=== PATIENT | male | born 1970 | race African-American/Black ===

== ENCOUNTER 2017-02-11 10:31 | Observation (INO) ==
[2017-02-11] MEDS ORDERED: ASPIRIN 325 MG TABLET PO STA (11:03)
[2017-02-11] MEDS ORDERED: MORPHINE 2 MG/1 ML SYRINGE IV STA (11:03)
[2017-02-11] MEDS ORDERED: ALUM/MAG/SIMETH/LIDO VISC 1:1 30 ML BOTTLE PO STA (11:03)
[2017-02-11] MEDS ORDERED: NITROGLYCERIN 2% OINT 1 INCH/GM PACK TOP STA (11:03)
[2017-02-11] MEDS ORDERED: METOPROLOL TARTRATE 5 MG/5 ML VIAL IV STA (11:03)
[2017-02-11] MEDS ORDERED: ONDANSETRON 4 MG/2 ML VIAL IV STA (11:03)
[2017-02-11] MEDS ORDERED: FUROSEMIDE 40 MG/4 ML VIAL IV STA (11:04)
[2017-02-11 11:10] LABS: Basophils # 0.1 10*3/uL (0.0-0.2); Basophils % 1.2 % (0.0-0.8); Eosinophils # 0.2 10*3/uL (0.0-0.87); Eosinophils % 2.8 % (0.00-10.9); Hematocrit 47.4 VOL% (42.0-52.0); Hemoglobin 16.3 GM/DL (14.0-18.0); Immature Granulocytes % 0.2 %; Immature Granulocytes Absolute 0.01 #; Lymphocytes # 2.2 10*3/uL (1.4-4.0); Lymphocytes % 35.8 % (21.2-54.2); Mean Corpuscular HGB Conc 34.4 GM/DL (32-36); Mean Corpuscular Hemoglobin 30 PG (27-34); Mean Corpuscular Volume 86.7 FL (87-102); Monocytes # 0.6 10*3/uL (0.11-0.8); Monocytes % 9.3 % (1.7-12.7); Neutrophils % 50.7 % (38.7-73.9); Platelet Count 202 T/CUMM (130-400); Red Blood Count 5.47 MC/CUMM (3.8-5.5); Red Cell Distribution Width 11.9 % (9.3-17.3)
[2017-02-11] MEDS ORDERED: ONDANSETRON 4 MG/2 ML VIAL ONE (11:19)
[2017-02-11] MEDS ORDERED: MORPHINE 2 MG/1 ML SYRINGE ONE (11:19)
[2017-02-11] MEDS ORDERED: NITROGLYCERIN 2% OINT 1 INCH/GM PACK TOP ONE (11:19)
[2017-02-11] MEDS ORDERED: FUROSEMIDE 40 MG/4 ML VIAL ONE (11:19)
[2017-02-11] MEDS ORDERED: ALUM/MAG/SIMETH/LIDO VISC 1:1 30 ML BOTTLE PO ONE (11:20)
[2017-02-11] MEDS ORDERED: ASPIRIN 325 MG TABLET ONE (11:20)
[2017-02-11] MEDS ORDERED: METOPROLOL TARTRATE 5 MG/5 ML VIAL IV ONE (11:20)
[2017-02-11 11:33] LABS: PT Patient Result > 200.0 SECS
[2017-02-11 11:34] LABS: INR > 20.0
[2017-02-11 11:53] LABS: Albumin 2.9 G/DL (3.4-5.0); Bilirubin,Total 0.7 MG/DL (0.2-1.0); Calcium 8.9 MG/DL (8.5-10.1); Magnesium 2.1 MG/DL (1.8-2.4); Osmolality,Calculated 289.3 MOS/KG (273-304); Total Protein 6.7 G/DL (6.4-8.3)
[2017-02-11 12:11] LABS: PT Patient Result 10.2 SECS
[2017-02-11 12:36] LABS: Ammonia 16 UMOL/L (11-32)
[2017-02-11 12:41] LABS: Lactic Acid 1.6 MMOL/L (0.4-2.0)
[2017-02-11] MEDS ORDERED: ENOXAPARIN 100 MG/ML SYRINGE SUBCUT STA (12:45)
[2017-02-11] MEDS ORDERED: DEXTROSE 50% 25 GM/50 ML VIAL IV PRN (13:08)
[2017-02-11] MEDS ORDERED: GLUCAGON 1 MG VIAL IM PRN (13:08)
[2017-02-11] MEDS ORDERED: ENOXAPARIN 120 MG/0.8 ML SYRINGE SUBCUT ONE (13:12)
[2017-02-11 13:25] LABS: Apearance,Urine CLEAR (Clear); Bilirubin,Urine Negative (Negative); Blood, Urine Small mg/dL (Negative); Glucose,Urine (UA) 150 mg/dL (Negative); Hyaline Casts,Urine 1 /LPF (0-3); Ketones,Urine Negative (Negative); Mucus,Urine Occasional /LPF (Occasional); Nitrite,Urine Negative (Negative); Protein,Urine >=500 MG/DL; RBC,Urine 2 /HPF (0-4); Urine Color Yellow (Yellow); Urine Specific Gravity 1.008 (1.001-1.035); Urine Urobilinogen < 2.0 EU/DL (0.2-1.0); WBC,Urine <1 /HPF (0-6)
[2017-02-11 13:33] LABS: Barbiturates Screen,Urine Negative (Negative); Benzodiazepines Screen,Urine Negative (Negative); Cannabinoid Screen,Urine Negative (Negative); Opiate Screen,Urine Positive (Negative); Phencyclidine Screen,Urine Negative (Negative)
[2017-02-11] MEDS: CARVEDILOL 12.5 MG TABLET PO SCH ×2 (17:28)
[2017-02-11] MEDS: INSULIN LISPRO 100 UNIT/ML SUBCUT SCH ×2 (17:29→21:23)
[2017-02-11] MEDS ORDERED: hydrALAZINE 20 MG/1 ML VIAL IV PRN (21:07)
[2017-02-11] MEDS ORDERED: ACETAMINOPHEN 325 MG TABLET PO PRN (21:07)
[2017-02-11] MEDS: FUROSEMIDE 40 MG/4 ML VIAL IV SCH (21:23)
[2017-02-12] MEDS: ASPIRIN EC 81 MG TABLET PO SCH (09:30)
[2017-02-12] MEDS: CARVEDILOL 12.5 MG TABLET PO SCH ×2 (09:30→17:16)
[2017-02-12] MEDS: FUROSEMIDE 40 MG/4 ML VIAL IV SCH ×2 (09:30→17:16)
[2017-02-12] MEDS: LOSARTAN 50 MG TABLET PO SCH ×2 (09:30→22:11)
[2017-02-12] MEDS: INSULIN LISPRO 100 UNIT/ML SUBCUT SCH ×4 (09:40→22:11)
[2017-02-12] MEDS ORDERED: ENOXAPARIN 40 MG/0.4 ML SYRINGE SUBCUT SCH (21:00)
[2017-02-13 05:18] LABS: Calcium 7.9 MG/DL (8.5-10.1); Osmolality,Calculated 283.4 MOS/KG (273-304); Potassium 3.6 MMOL/L (3.5-5.1)
[2017-02-13 07:58] VITALS: BP 146/95
[2017-02-13] MEDS ORDERED: FUROSEMIDE 40 MG/4 ML VIAL IV SCH (09:00)
[2017-02-13] MEDS: LOSARTAN 50 MG TABLET PO SCH (09:21)
[2017-02-13] MEDS: ASPIRIN EC 81 MG TABLET PO SCH (09:22)
[2017-02-13] MEDS: CARVEDILOL 12.5 MG TABLET PO SCH (09:22)
[2017-02-13] MEDS: INSULIN LISPRO 100 UNIT/ML SUBCUT SCH (09:24)
[2017-02-13] MEDS ORDERED: INSULIN ASPART PROTAMINE/ASPART 70/30 100 UNIT/ML SUBCUT SCH (12:00)
== END 2017-02-13 10:17 | disposition home or self-care (01) ==
LOC: N.EDINP 10:31 → N.ED 10:31 → N.EDINP 15:07 → N.TELES 15:16
PROVIDERS: ADMIT Internal Medicine; ATTEND Internal Medicine

== ENCOUNTER 2020-04-17 14:13 | Inpatient (IN) ==
[2020-04-17 16:28] LABS: Basophils # 0.1 10*3/uL (0.0-0.2); Basophils % 1.2 % (0.0-0.8); Eosinophils # 0.1 10*3/uL (0.0-0.87); Eosinophils % 1.9 % (0.00-10.9); Hemoglobin 9.6 GM/DL (14.0-18.0); Immature Granulocytes % 0.4 %; Immature Granulocytes Absolute 0.02 #; Lymphocytes # 0.8 10*3/uL (1.4-4.0); Lymphocytes % 14.8 % (21.2-54.2); Mean Corpuscular HGB Conc 33.1 GM/DL (32-36); Mean Corpuscular Volume 87.6 FL (87-102); Mean Platelet Volume 10.2 FL (9.6-12.0); Monocytes % 14.4 % (1.7-12.7); Neutrophils % 67.3 % (38.7-73.9); Platelet Count 240 T/CUMM (130-400); Red Blood Count 3.31 MC/CUMM (3.8-5.5); Red Cell Distribution Width 15.7 % (9.3-17.3); White Blood Count 5.7 T/CUMM (4-12)
[2020-04-17 16:41] LABS: Albumin 2.9 G/DL (3.4-5.0); Bilirubin,Total 0.7 MG/DL (0.2-1.0); Calcium 8.8 MG/DL (8.5-10.1); Osmolality,Calculated 301.7 MOS/KG (273-304); Potassium 4.4 MMOL/L (3.5-5.1); Total Protein 7.6 G/DL (6.4-8.3)
[2020-04-17] MEDS ORDERED: SODIUM CHLORIDE 0.9% 500 ML IV STA (16:49)
[2020-04-17] MEDS ORDERED: ONDANSETRON 4 MG/2 ML VIAL IV PRN (17:41)
[2020-04-17] MEDS ORDERED: ACETAMINOPHEN 325 MG TABLET PO PRN (17:41)
[2020-04-17] MEDS ORDERED: GLUCAGON 1 MG VIAL IM PRN (17:41)
[2020-04-17] MEDS ORDERED: DEXTROSE 50% 25 GM/50 ML VIAL IV PRN (17:41)
[2020-04-17] MEDS ORDERED: guaiFENesin/DM ER 600-30 MG TABLET PO PRN (17:41)
[2020-04-17] MEDS ORDERED: ALBUTEROL 2.5 MG/3 ML NEB RESP TX PRN (17:41)
[2020-04-17] MEDS: HEPARIN 5,000 UNIT/1 ML VIAL SUBCUT SCH (18:30)
[2020-04-17] MEDS: carvediloL 12.5 MG TABLET PO SCH (18:30)
[2020-04-17] MEDS: SODIUM BICARB INJ 50 MEQ in SODIUM CHLORIDE 0.45% 1,000 ML IV SCH (18:30)
[2020-04-17] MEDS: INSULIN REGULAR 100 UNIT/ML SUBCUT SCH (21:03)
[2020-04-17] MEDS: DOCUSATE SODIUM 100 MG CAPSULE PO SCH (21:04)
[2020-04-18] MEDS: HEPARIN 5,000 UNIT/1 ML VIAL SUBCUT SCH ×3 (02:32→18:19)
[2020-04-18] MEDS: hydrALAZINE 20 MG/1 ML VIAL IV PRN ×2 (04:50→11:31)
[2020-04-18] MEDS: SODIUM BICARB INJ 50 MEQ in SODIUM CHLORIDE 0.45% 1,000 ML IV SCH (04:50)
[2020-04-18] MEDS: LEVOTHYROXINE 75 MCG TABLET PO SCH (05:58)
[2020-04-18 06:37] LABS: Basophils # 0.1 10*3/uL (0.0-0.2); Basophils % 1.4 % (0.0-0.8); Eosinophils # 0.1 10*3/uL (0.0-0.87); Eosinophils % 2.8 % (0.00-10.9); Hemoglobin 9.5 GM/DL (14.0-18.0); Immature Granulocytes % 0.5 %; Immature Granulocytes Absolute 0.02 #; Lymphocytes # 0.7 10*3/uL (1.4-4.0); Lymphocytes % 16.9 % (21.2-54.2); Mean Corpuscular HGB Conc 32.8 GM/DL (32-36); Mean Corpuscular Volume 87.9 FL (87-102); Mean Platelet Volume 10.5 FL (9.6-12.0); Monocytes % 14.1 % (1.7-12.7); Neutrophils % 64.3 % (38.7-73.9); Platelet Count 207 T/CUMM (130-400); Red Cell Distribution Width 15.9 % (9.3-17.3); White Blood Count 4.3 T/CUMM (4-12)
[2020-04-18] MEDS: INSULIN REGULAR 100 UNIT/ML SUBCUT SCH ×4 (07:14→21:02)
[2020-04-18 07:29] LABS: Albumin 2.6 G/DL (3.4-5.0); Bilirubin,Total 0.6 MG/DL (0.2-1.0); Calcium 8.5 MG/DL (8.5-10.1); Osmolality,Calculated 304.1 MOS/KG (273-304); Potassium 4.3 MMOL/L (3.5-5.1); Risk Ratio 1.82; Thyroid Stimulating Hormone 6.14 uIU/ml (0.358-3.74)
[2020-04-18] MEDS: DOCUSATE SODIUM 100 MG CAPSULE PO SCH ×2 (08:24→21:02)
[2020-04-18] MEDS: PANTOPRAZOLE 40 MG TABLET PO SCH (08:24)
[2020-04-18] MEDS: carvediloL 12.5 MG TABLET PO SCH ×2 (09:20→16:02)
[2020-04-18] MEDS: SODIUM BICARBONATE 650 MG TABLET PO SCH ×2 (16:02→21:01)
[2020-04-19] MEDS: HEPARIN 5,000 UNIT/1 ML VIAL SUBCUT SCH ×3 (02:27→18:16)
[2020-04-19] MEDS: LEVOTHYROXINE 75 MCG TABLET PO SCH (06:09)
[2020-04-19 06:20] LABS: Basophils # 0.1 10*3/uL (0.0-0.2); Basophils % 1.2 % (0.0-0.8); Eosinophils # 0.2 10*3/uL (0.0-0.87); Eosinophils % 3.5 % (0.00-10.9); Hematocrit 27.7 VOL% (42.0-52.0); Hemoglobin 9.3 GM/DL (14.0-18.0); Immature Granulocytes % 0.2 %; Immature Granulocytes Absolute 0.01 #; Lymphocytes # 0.5 10*3/uL (1.4-4.0); Lymphocytes % 12.4 % (21.2-54.2); Mean Corpuscular HGB Conc 33.6 GM/DL (32-36); Monocytes % 15.6 % (1.7-12.7); Neutrophils % 67.1 % (38.7-73.9); Platelet Count 202 T/CUMM (130-400); Red Blood Count 3.22 MC/CUMM (3.8-5.5); Red Cell Distribution Width 15.7 % (9.3-17.3); White Blood Count 4.3 T/CUMM (4-12)
[2020-04-19 06:46] LABS: Albumin 2.5 G/DL (3.4-5.0); Bilirubin,Total 1.5 MG/DL (0.2-1.0); Calcium 8.3 MG/DL (8.5-10.1); Potassium 3.9 MMOL/L (3.5-5.1); Total Protein 6.6 G/DL (6.4-8.3)
[2020-04-19] MEDS: INSULIN REGULAR 100 UNIT/ML SUBCUT SCH ×4 (08:03→20:34)
[2020-04-19] MEDS: DOCUSATE SODIUM 100 MG CAPSULE PO SCH ×2 (08:25→20:34)
[2020-04-19] MEDS: carvediloL 12.5 MG TABLET PO SCH ×2 (08:25→17:24)
[2020-04-19] MEDS: SODIUM BICARBONATE 650 MG TABLET PO SCH ×3 (08:25→20:35)
[2020-04-19] MEDS: PANTOPRAZOLE 40 MG TABLET PO SCH (08:25)
[2020-04-19 08:32] LABS: Creatinine,Urine Random 101 MG/DL; Total Protein,Urine Random 316 MG/DL
[2020-04-19 10:30] LABS: Band Neutrophils 1 % (0-10); Eosinophils 5 % (0-10); Hypochromasia 2+; Lymphocytes 9 % (20-55); Platelet Estimate Normal; Polychromasia Slight; Segmented Neutrophils 76 % (50-85); Total Cells Counted 100
[2020-04-19] MEDS: FUROSEMIDE 80 MG TABLET PO SCH (12:31)
[2020-04-20] MEDS: HEPARIN 5,000 UNIT/1 ML VIAL SUBCUT SCH ×3 (02:03→17:26)
[2020-04-20] MEDS: LEVOTHYROXINE 75 MCG TABLET PO SCH (05:41)
[2020-04-20 06:26] LABS: Basophils # 0.1 10*3/uL (0.0-0.2); Basophils % 1.3 % (0.0-0.8); Eosinophils # 0.1 10*3/uL (0.0-0.87); Eosinophils % 3.3 % (0.00-10.9); Hematocrit 26.7 VOL% (42.0-52.0); Hemoglobin 8.7 GM/DL (14.0-18.0); Immature Granulocytes % 0.5 %; Immature Granulocytes Absolute 0.02 #; Lymphocytes # 0.7 10*3/uL (1.4-4.0); Mean Corpuscular HGB Conc 32.6 GM/DL (32-36); Mean Corpuscular Volume 87.5 FL (87-102); Mean Platelet Volume 9.8 FL (9.6-12.0); Neutrophils % 60.9 % (38.7-73.9); Platelet Count 186 T/CUMM (130-400); Red Blood Count 3.05 MC/CUMM (3.8-5.5); Red Cell Distribution Width 15.7 % (9.3-17.3); White Blood Count 3.9 T/CUMM (4-12)
[2020-04-20 06:40] LABS: Calcium 7.9 MG/DL (8.5-10.1); Osmolality,Calculated 304.3 MOS/KG (273-304)
[2020-04-20 06:41] LABS: % Iron Saturation 14.3 % (18-50)
[2020-04-20 06:45] LABS: Albumin 2.4 G/DL (3.4-5.0); Bilirubin,Total 0.9 MG/DL (0.2-1.0); Osmolality,Calculated 303.3 MOS/KG (273-304); Potassium 3.9 MMOL/L (3.5-5.1); Total Protein 6.4 G/DL (6.4-8.3)
[2020-04-20] MEDS: INSULIN REGULAR 100 UNIT/ML SUBCUT SCH ×4 (07:10→20:15)
[2020-04-20 07:49] LABS: Anisocytosis 2+; Band Neutrophils 3 % (0-10); Eosinophils 4 % (0-10); Lymphocytes 18 % (20-55); Macrocytosis 1+; Platelet Estimate Normal; Segmented Neutrophils 58 % (50-85); Total Cells Counted 100
[2020-04-20 07:50] LABS: Burr Cells Few; Poikilocytosis 1+
[2020-04-20] MEDS: SODIUM BICARBONATE 650 MG TABLET PO SCH ×4 (07:53→20:06)
[2020-04-20] MEDS: FUROSEMIDE 80 MG TABLET PO SCH ×2 (07:53→08:15)
[2020-04-20] MEDS: PANTOPRAZOLE 40 MG TABLET PO SCH ×2 (07:54→08:15)
[2020-04-20] MEDS: carvediloL 12.5 MG TABLET PO SCH ×2 (07:54→16:06)
[2020-04-20] MEDS: DOCUSATE SODIUM 100 MG CAPSULE PO SCH ×2 (08:14→20:15)
[2020-04-20 10:35] LABS: Amorphous Crystals,Urine Occasional /HPF (Few); Bacteria,Urine Occasional /HPF (Few); Bilirubin,Urine Negative (Negative); Blood, Urine Small mg/dL (Negative); Glucose,Urine (UA) 50 mg/dL (Negative); Ketones,Urine Negative (Negative); Mucus,Urine Occasional /LPF (Occasional); Nitrite,Urine Negative (Negative); Protein,Urine >=500 MG/DL; RBC,Urine 3 /HPF (0-4); Urine Appearance CLEAR (Clear); Urine Color Yellow (Yellow); Urine Specific Gravity 1.009 (1.001-1.035); Urine Urobilinogen < 2.0 EU/DL (0.2-1.0); WBC,Urine 1 /HPF (0-6)
[2020-04-21] MEDS: HEPARIN 5,000 UNIT/1 ML VIAL SUBCUT SCH ×3 (01:41→18:20)
[2020-04-21] MEDS: LEVOTHYROXINE 75 MCG TABLET PO SCH (05:46)
[2020-04-21 06:31] LABS: Osmolality,Calculated 304.3 MOS/KG (273-304); Potassium 3.9 MMOL/L (3.5-5.1)
[2020-04-21] MEDS: INSULIN REGULAR 100 UNIT/ML SUBCUT SCH ×4 (08:52→20:28)
[2020-04-21] MEDS: DOCUSATE SODIUM 100 MG CAPSULE PO SCH ×2 (10:09→20:28)
[2020-04-21] MEDS: SODIUM BICARBONATE 650 MG TABLET PO SCH ×3 (10:09→20:28)
[2020-04-21] MEDS: PANTOPRAZOLE 40 MG TABLET PO SCH (10:09)
[2020-04-21] MEDS: FUROSEMIDE 80 MG TABLET PO SCH (10:09)
[2020-04-21] MEDS: carvediloL 12.5 MG TABLET PO SCH ×2 (10:09→17:24)
[2020-04-21] MEDS: hydrALAZINE 20 MG/1 ML VIAL IV PRN ×2 (12:58→20:27)
[2020-04-22] MEDS: HEPARIN 5,000 UNIT/1 ML VIAL SUBCUT SCH ×3 (02:30→17:05)
[2020-04-22] MEDS: LEVOTHYROXINE 75 MCG TABLET PO SCH (05:37)
[2020-04-22 05:53] LABS: Osmolality,Calculated 304.3 MOS/KG (273-304); Potassium 3.9 MMOL/L (3.5-5.1)
[2020-04-22] MEDS: INSULIN REGULAR 100 UNIT/ML SUBCUT SCH ×4 (07:39→20:18)
[2020-04-22] MEDS: FUROSEMIDE 80 MG TABLET PO SCH ×2 (08:14→17:04)
[2020-04-22] MEDS: carvediloL 12.5 MG TABLET PO SCH ×2 (08:14→17:04)
[2020-04-22] MEDS: DOCUSATE SODIUM 100 MG CAPSULE PO SCH ×2 (08:14→20:09)
[2020-04-22] MEDS: SODIUM BICARBONATE 650 MG TABLET PO SCH ×3 (08:15→20:08)
[2020-04-22] MEDS: PANTOPRAZOLE 40 MG TABLET PO SCH (08:15)
[2020-04-22] MEDS: metOLazone 5 MG TABLET PO SCH (10:58)
[2020-04-22] MEDS: hydrALAZINE 20 MG/1 ML VIAL IV PRN (17:05)
[2020-04-23] MEDS: HEPARIN 5,000 UNIT/1 ML VIAL SUBCUT SCH ×3 (02:01→16:27)
[2020-04-23] MEDS: LEVOTHYROXINE 75 MCG TABLET PO SCH (05:31)
[2020-04-23] MEDS: hydrALAZINE 20 MG/1 ML VIAL IV PRN ×2 (05:31→18:16)
[2020-04-23 05:35] LABS: Basophils % 0.9 % (0.0-0.8); Eosinophils # 0.2 10*3/uL (0.0-0.87); Eosinophils % 3.4 % (0.00-10.9); Hematocrit 27.1 VOL% (42.0-52.0); Hemoglobin 8.8 GM/DL (14.0-18.0); Immature Granulocytes % 0.5 %; Immature Granulocytes Absolute 0.02 #; Lymphocytes # 0.5 10*3/uL (1.4-4.0); Lymphocytes % 12.4 % (21.2-54.2); Mean Corpuscular HGB Conc 32.5 GM/DL (32-36); Mean Corpuscular Volume 87.1 FL (87-102); Mean Platelet Volume 9.7 FL (9.6-12.0); Monocytes % 13.6 % (1.7-12.7); Neutrophils % 69.2 % (38.7-73.9); Platelet Count 161 T/CUMM (130-400); Red Blood Count 3.11 MC/CUMM (3.8-5.5); Red Cell Distribution Width 15.6 % (9.3-17.3); White Blood Count 4.4 T/CUMM (4-12)
[2020-04-23 05:48] LABS: Calcium 8.1 MG/DL (8.5-10.1); Osmolality,Calculated 303.4 MOS/KG (273-304); Potassium 3.7 MMOL/L (3.5-5.1)
[2020-04-23] MEDS: INSULIN REGULAR 100 UNIT/ML SUBCUT SCH ×4 (07:29→20:57)
[2020-04-23] MEDS: metOLazone 5 MG TABLET PO SCH (08:21)
[2020-04-23] MEDS: carvediloL 12.5 MG TABLET PO SCH ×2 (08:21→16:27)
[2020-04-23] MEDS: SODIUM BICARBONATE 650 MG TABLET PO SCH ×3 (08:21→20:57)
[2020-04-23] MEDS: DOCUSATE SODIUM 100 MG CAPSULE PO SCH ×2 (08:21→20:56)
[2020-04-23] MEDS: FUROSEMIDE 80 MG TABLET PO SCH ×2 (08:21→16:27)
[2020-04-24] MEDS: HEPARIN 5,000 UNIT/1 ML VIAL SUBCUT SCH ×3 (00:52→16:11)
[2020-04-24 05:52] LABS: Basophils # 0.1 10*3/uL (0.0-0.2); Basophils % 1.5 % (0.0-0.8); Eosinophils # 0.2 10*3/uL (0.0-0.87); Eosinophils % 3.5 % (0.00-10.9); Hematocrit 27.6 VOL% (42.0-52.0); Hemoglobin 9.2 GM/DL (14.0-18.0); Immature Granulocytes % 0.4 %; Immature Granulocytes Absolute 0.02 #; Lymphocytes # 0.6 10*3/uL (1.4-4.0); Lymphocytes % 13.9 % (21.2-54.2); Mean Corpuscular HGB Conc 33.3 GM/DL (32-36); Mean Corpuscular Volume 86.8 FL (87-102); Monocytes % 16.5 % (1.7-12.7); Neutrophils % 64.2 % (38.7-73.9); Platelet Count 176 T/CUMM (130-400); Red Blood Count 3.18 MC/CUMM (3.8-5.5); Red Cell Distribution Width 15.5 % (9.3-17.3); White Blood Count 4.5 T/CUMM (4-12)
[2020-04-24] MEDS: LEVOTHYROXINE 75 MCG TABLET PO SCH (05:52)
[2020-04-24 06:09] LABS: Calcium 8.7 MG/DL (8.5-10.1); Osmolality,Calculated 304.4 MOS/KG (273-304); Potassium 3.5 MMOL/L (3.5-5.1)
[2020-04-24 06:40] LABS: Anisocytosis 2+; Band Neutrophils 3 % (0-10); Burr Cells 1+; Eosinophils 3 % (0-10); Hypochromasia Slight; Lymphocytes 14 % (20-55); Platelet Estimate Normal; Segmented Neutrophils 64 % (50-85); Total Cells Counted 100
[2020-04-24] MEDS: INSULIN REGULAR 100 UNIT/ML SUBCUT SCH ×4 (07:22→20:25)
[2020-04-24] MEDS: metOLazone 5 MG TABLET PO SCH (08:23)
[2020-04-24] MEDS: DOCUSATE SODIUM 100 MG CAPSULE PO SCH ×2 (08:23→20:25)
[2020-04-24] MEDS: SODIUM BICARBONATE 650 MG TABLET PO SCH ×3 (08:23→20:25)
[2020-04-24] MEDS: carvediloL 12.5 MG TABLET PO SCH ×2 (08:24→16:12)
[2020-04-24] MEDS: FUROSEMIDE 80 MG TABLET PO SCH ×2 (08:24→16:12)
[2020-04-24] MEDS: hydrALAZINE 20 MG/1 ML VIAL IV PRN (20:26)
[2020-04-25] MEDS: HEPARIN 5,000 UNIT/1 ML VIAL SUBCUT SCH ×2 (01:08→09:02)
[2020-04-25] MEDS: LEVOTHYROXINE 75 MCG TABLET PO SCH (05:52)
[2020-04-25 08:46] LABS: Basophils # 0.1 10*3/uL (0.0-0.2); Basophils % 1.7 % (0.0-0.8); Eosinophils # 0.1 10*3/uL (0.0-0.87); Eosinophils % 3.5 % (0.00-10.9); Hematocrit 28.7 VOL% (42.0-52.0); Hemoglobin 9.4 GM/DL (14.0-18.0); Immature Granulocytes % 0.5 %; Immature Granulocytes Absolute 0.02 #; Lymphocytes # 0.6 10*3/uL (1.4-4.0); Lymphocytes % 14.4 % (21.2-54.2); Mean Corpuscular HGB Conc 32.8 GM/DL (32-36); Mean Corpuscular Volume 87.2 FL (87-102); Mean Platelet Volume 9.8 FL (9.6-12.0); Monocytes % 16.4 % (1.7-12.7); Neutrophils % 63.5 % (38.7-73.9); Platelet Count 185 T/CUMM (130-400); Red Blood Count 3.29 MC/CUMM (3.8-5.5); Red Cell Distribution Width 15.4 % (9.3-17.3)
[2020-04-25] MEDS: SODIUM BICARBONATE 650 MG TABLET PO SCH (09:00)
[2020-04-25] MEDS: DOCUSATE SODIUM 100 MG CAPSULE PO SCH (09:01)
[2020-04-25] MEDS: FUROSEMIDE 80 MG TABLET PO SCH (09:01)
[2020-04-25] MEDS: metOLazone 5 MG TABLET PO SCH (09:01)
[2020-04-25] MEDS: carvediloL 12.5 MG TABLET PO SCH (09:02)
[2020-04-25] MEDS: hydrALAZINE 20 MG/1 ML VIAL IV PRN (09:03)
[2020-04-25 09:06] LABS: Calcium 8.6 MG/DL (8.5-10.1); Osmolality,Calculated 305.3 MOS/KG (273-304); Potassium 3.3 MMOL/L (3.5-5.1)
[2020-04-25 09:13] LABS: Hypochromasia 1+; Microcytosis 1+; Ovalocytes Slight; Platelet Estimate Adequate
[2020-04-25] MEDS: INSULIN REGULAR 100 UNIT/ML SUBCUT SCH ×2 (10:27→13:34)
[2020-04-25] MEDS ORDERED: IRON SUCROSE 200 MG in SODIUM CHLORIDE 0.9% 100 ML IV SCH (12:00)
[2020-04-25] MEDS ORDERED: EPOETIN ALFA-EPBX 10,000 UNIT/ML VIAL SUBCUT ONE (12:00)
[2020-04-25 15:56] VITALS: BP 147/83
== END 2020-04-25 15:45 | disposition home or self-care (01) | DRG 682 ==
LOC: N.ED 14:13 → N.EDINP 17:41 → SUATTDRO 17:41 → N.5E 19:33
PROVIDERS: ADMIT Family Medicine; ATTEND Internal Medicine

== ENCOUNTER 2020-08-06 14:01 | Inpatient (IN) ==
[2020-08-06 16:18] LABS: Basophils # 0.1 10*3/uL (0.0-0.2); Basophils % 1.4 % (0.0-0.8); Eosinophils # 0.1 10*3/uL (0.0-0.87); Eosinophils % 2.6 % (0.00-10.9); Hematocrit 29.3 VOL% (42.0-52.0); Hemoglobin 9.7 GM/DL (14.0-18.0); Immature Granulocytes % 0.4 %; Immature Granulocytes Absolute 0.02 #; Lymphocytes # 0.5 10*3/uL (1.4-4.0); Lymphocytes % 10.7 % (21.2-54.2); Mean Corpuscular HGB Conc 33.1 GM/DL (32-36); Mean Corpuscular Volume 84.9 FL (87-102); Mean Platelet Volume 9.9 FL (9.6-12.0); Monocytes % 15.7 % (1.7-12.7); Neutrophils % 69.2 % (38.7-73.9); Platelet Count 221 T/CUMM (130-400); Red Blood Count 3.45 MC/CUMM (3.8-5.5); Red Cell Distribution Width 13.3 % (9.3-17.3)
[2020-08-06 16:35] LABS: Bilirubin,Total 0.4 MG/DL (0.2-1.0); Calcium 7.9 MG/DL (8.5-10.1); Osmolality,Calculated 321.7 MOS/KG (273-304); Total Protein 7.7 G/DL (6.4-8.2)
[2020-08-06] MEDS ORDERED: DEXTROSE 50% 25 GM/50 ML VIAL IV PRN (17:02)
[2020-08-06] MEDS ORDERED: ONDANSETRON 4 MG/2 ML VIAL IV PRN (17:02)
[2020-08-06] MEDS ORDERED: GLUCAGON 1 MG VIAL IM PRN (17:02)
[2020-08-06 17:23] LABS: Lymphocytes 9 % (20-55); Myelocytes 1 %; Segmented Neutrophils 79 % (50-85); Total Cells Counted 100
[2020-08-06 17:47] LABS: Thyroid Stimulating Hormone 15.9 uIU/ml (0.358-3.74)
[2020-08-06] MEDS: HEPARIN 5,000 UNIT/1 ML VIAL SUBCUT SCH (18:07)
[2020-08-06] MEDS: INSULIN LISPRO 100 UNIT/ML SUBCUT SCH (20:44)
[2020-08-06] MEDS: FERROUS SULFATE 325 MG TABLET PO SCH (20:45)
[2020-08-06] MEDS: DOCUSATE SODIUM 100 MG CAPSULE PO SCH (20:45)
[2020-08-07] MEDS: hydrALAZINE 20 MG/1 ML VIAL IV PRN (00:06)
[2020-08-07] MEDS: HEPARIN 5,000 UNIT/1 ML VIAL SUBCUT SCH ×2 (04:30→18:32)
[2020-08-07] MEDS: ACETAMINOPHEN 325 MG TABLET PO PRN (04:34)
[2020-08-07 05:19] LABS: Basophils # 0.1 10*3/uL (0.0-0.2); Basophils % 1.3 % (0.0-0.8); Eosinophils # 0.2 10*3/uL (0.0-0.87); Eosinophils % 3.3 % (0.00-10.9); Hematocrit 27.1 VOL% (42.0-52.0); Hemoglobin 9.2 GM/DL (14.0-18.0); Immature Granulocytes % 0.4 %; Immature Granulocytes Absolute 0.02 #; Lymphocytes # 0.5 10*3/uL (1.4-4.0); Lymphocytes % 9.4 % (21.2-54.2); Mean Corpuscular HGB Conc 33.9 GM/DL (32-36); Mean Corpuscular Volume 82.9 FL (87-102); Mean Platelet Volume 10.1 FL (9.6-12.0); Neutrophils % 67.6 % (38.7-73.9); Platelet Count 198 T/CUMM (130-400); Red Blood Count 3.27 MC/CUMM (3.8-5.5); Red Cell Distribution Width 13.2 % (9.3-17.3); White Blood Count 5.2 T/CUMM (4-12)
[2020-08-07 05:47] LABS: Band Neutrophils 1 % (0-10); Eosinophils 6 % (0-10); Hypochromasia 1+; Lymphocytes 9 % (20-55); Microcytosis 1+; Platelet Estimate Adequate; Segmented Neutrophils 70 % (50-85); Total Cells Counted 100
[2020-08-07 05:54] LABS: Calcium 8.2 MG/DL (8.5-10.1); Osmolality,Calculated 324.5 MOS/KG (273-304); Potassium 3.8 MMOL/L (3.5-5.1)
[2020-08-07] MEDS ORDERED: LEVOTHYROXINE 75 MCG TABLET PO SCH (07:00)
[2020-08-07] MEDS: PANTOPRAZOLE 40 MG TABLET PO SCH (08:27)
[2020-08-07] MEDS: DOCUSATE SODIUM 100 MG CAPSULE PO SCH ×3 (08:27→20:28)
[2020-08-07] MEDS: FERROUS SULFATE 325 MG TABLET PO SCH ×2 (08:27→20:23)
[2020-08-07] MEDS: carvediloL 12.5 MG TABLET PO SCH ×2 (08:27→18:05)
[2020-08-07] MEDS: INSULIN LISPRO 100 UNIT/ML SUBCUT SCH ×4 (09:32→20:28)
[2020-08-07] MEDS ORDERED: BUPIVACAINE MPF 0.25% 30 ML VIAL ONE (10:49)
[2020-08-07] MEDS ORDERED: LIDOCAINE 1%/EPI INJ 20 ML VIAL ONE (10:49)
[2020-08-07 10:56] LABS: Hepatitis B Core IgM Quant < 0.05 Index; Hepatitis B Surface Ag Quant < 0.10 Index; Hepatitis B Surface Ag Result Non-Reactive (NonReactive); Hepatitis C Virus Ab Quant 0.09 Index; Hepatitis C Virus Ab Result Non-Reactive (NonReactive)
[2020-08-07] MEDS ORDERED: SODIUM CHLORIDE 0.9% 250 ML IV SCH (12:00)
[2020-08-07] MEDS ORDERED: LIDOCAINE 2% 5 ML VIAL ONE (12:21)
[2020-08-07] MEDS ORDERED: propofoL 200 MG/20 ML VIAL IV ONE (12:21)
[2020-08-07] MEDS ORDERED: DEXMEDETOMIDINE 200 MCG/2 ML VIAL ONE (12:21)
[2020-08-07] MEDS ORDERED: MIDAZOLAM 2 MG/2 ML VIAL ONE (12:31)
[2020-08-07] MEDS ORDERED: HEPARIN 10,000 UNIT/10 ML VIAL IV PRN (17:19)
[2020-08-08 00:12] LABS: Bacteria,Urine Occasional /HPF (Few); Bilirubin,Urine Negative (Negative); Blood, Urine Small mg/dL (Negative); Glucose,Urine (UA) Negative (Negative); Hyaline Casts,Urine 3 /LPF (0-3); Ketones,Urine Negative (Negative); Mucus,Urine Occasional /LPF (Occasional); Nitrite,Urine Negative (Negative); Protein,Urine >=500 MG/DL; RBC,Urine 2 /HPF (0-4); Squamous Epithelial Cell,Urine Occasional /HPF (0-10); Urine Appearance CLEAR (Clear); Urine Color Yellow (Yellow); Urine Specific Gravity 1.013 (1.001-1.035); Urine Urobilinogen < 2.0 EU/DL (0.2-1.0)
[2020-08-08 05:56] LABS: Basophils # 0.1 10*3/uL (0.0-0.2); Basophils % 1.1 % (0.0-0.8); Eosinophils # 0.1 10*3/uL (0.0-0.87); Eosinophils % 2.9 % (0.00-10.9); Hematocrit 25.5 VOL% (42.0-52.0); Hemoglobin 8.6 GM/DL (14.0-18.0); Immature Granulocytes % 0.4 %; Immature Granulocytes Absolute 0.02 #; Lymphocytes # 0.4 10*3/uL (1.4-4.0); Lymphocytes % 8.7 % (21.2-54.2); Mean Corpuscular HGB Conc 33.7 GM/DL (32-36); Mean Corpuscular Volume 83.6 FL (87-102); Mean Platelet Volume 9.9 FL (9.6-12.0); Monocytes % 17.2 % (1.7-12.7); Neutrophils % 69.7 % (38.7-73.9); Platelet Count 192 T/CUMM (130-400); Red Blood Count 3.05 MC/CUMM (3.8-5.5); Red Cell Distribution Width 13.2 % (9.3-17.3); White Blood Count 4.5 T/CUMM (4-12)
[2020-08-08 06:02] LABS: Calcium 7.8 MG/DL (8.5-10.1); Osmolality,Calculated 314.5 MOS/KG (273-304); Potassium 3.7 MMOL/L (3.5-5.1)
[2020-08-08] MEDS: LEVOTHYROXINE 100 MCG TABLET PO SCH (06:05)
[2020-08-08] MEDS: HEPARIN 5,000 UNIT/1 ML VIAL SUBCUT SCH ×2 (06:07→18:45)
[2020-08-08 06:30] LABS: Band Neutrophils 1 % (0-10); Eosinophils 2 % (0-10); Hypochromasia 1+; Lymphocytes 7 % (20-55); Segmented Neutrophils 72 % (50-85); Total Cells Counted 100
[2020-08-08 06:31] LABS: Microcytosis 1+; Ovalocytes Slight; Platelet Estimate Adequate
[2020-08-08] MEDS ORDERED: SUCCINYLCHOLINE 200 MG/10 ML VIAL ONE (07:10)
[2020-08-08] MEDS ORDERED: LIDOCAINE 2% 5 ML VIAL ONE (07:10)
[2020-08-08] MEDS ORDERED: ONDANSETRON 4 MG/2 ML VIAL ONE (07:10)
[2020-08-08] MEDS ORDERED: fentaNYL 100 MCG/2 ML VIAL ONE (07:10)
[2020-08-08] MEDS ORDERED: propofoL 200 MG/20 ML VIAL IV ONE (07:10)
[2020-08-08] MEDS ORDERED: ROCURONIUM 50 MG/5 ML VIAL IV ONE (07:10)
[2020-08-08] MEDS ORDERED: DEXAMETHASONE 4 MG/1 ML VIAL ONE (07:42)
[2020-08-08] MEDS: INSULIN LISPRO 100 UNIT/ML SUBCUT SCH ×4 (07:53→20:52)
[2020-08-08] MEDS ORDERED: ACETAMINOPHEN INJ 0 MG/0 ML VIAL IV ONE (07:55)
[2020-08-08] MEDS ORDERED: METOPROLOL TARTRATE 5 MG/5 ML VIAL IV ONE (08:09)
[2020-08-08] MEDS: carvediloL 12.5 MG TABLET PO SCH ×2 (14:31→18:43)
[2020-08-08] MEDS: PANTOPRAZOLE 40 MG TABLET PO SCH (14:36)
[2020-08-08] MEDS: DOCUSATE SODIUM 100 MG CAPSULE PO SCH ×2 (14:36→20:52)
[2020-08-08] MEDS: FERROUS SULFATE 325 MG TABLET PO SCH ×2 (14:36→20:52)
[2020-08-09 03:18] LABS: Protein/Creatinine Ratio,Urine 6.5 RATIO
[2020-08-09 05:20] LABS: Basophils # 0.1 10*3/uL (0.0-0.2); Basophils % 1.1 % (0.0-0.8); Eosinophils # 0.2 10*3/uL (0.0-0.87); Eosinophils % 3.6 % (0.00-10.9); Hematocrit 24.2 VOL% (42.0-52.0); Hemoglobin 8.2 GM/DL (14.0-18.0); Immature Granulocytes % 0.4 %; Immature Granulocytes Absolute 0.02 #; Lymphocytes # 0.5 10*3/uL (1.4-4.0); Lymphocytes % 11.5 % (21.2-54.2); Mean Corpuscular HGB Conc 33.9 GM/DL (32-36); Mean Platelet Volume 9.8 FL (9.6-12.0); Monocytes % 19.6 % (1.7-12.7); Neutrophils % 63.8 % (38.7-73.9); Platelet Count 184 T/CUMM (130-400); Red Blood Count 2.88 MC/CUMM (3.8-5.5); Red Cell Distribution Width 13.2 % (9.3-17.3); White Blood Count 4.7 T/CUMM (4-12)
[2020-08-09] MEDS: HEPARIN 5,000 UNIT/1 ML VIAL SUBCUT SCH ×2 (05:49→18:12)
[2020-08-09 05:50] LABS: Calcium 7.8 MG/DL (8.5-10.1); Osmolality,Calculated 299.5 MOS/KG (273-304); Potassium 3.7 MMOL/L (3.5-5.1)
[2020-08-09 05:58] LABS: Eosinophils 4 % (0-10); Hypochromasia 1+; Lymphocytes 12 % (20-55); Microcytosis 1+; Segmented Neutrophils 69 % (50-85); Total Cells Counted 100
[2020-08-09 05:59] LABS: Acanthocytes Few; Ovalocytes Slight; Target Cells Slight
[2020-08-09 06:00] LABS: Total Protein 6.8 G/DL (6.4-8.2)
[2020-08-09 06:00] LABS: Platelet Estimate Adequate
[2020-08-09] MEDS: LEVOTHYROXINE 100 MCG TABLET PO SCH (06:00)
[2020-08-09 07:13] LABS: Immunoglobulin A (Chem) 543 MG/DL (70-400); Immunoglobulin G (Chem) 1540 MG/DL (700-1600); Immunoglobulin M (Chem) 37 MG/DL (40-230); Total Protein (Chem) 6.8 G/DL (6.4-8.3)
[2020-08-09 07:14] LABS: Random Urine Protein (Bench) 632 MG/DL (<11.9)
[2020-08-09 08:42] LABS: Albumin (SPE) 3.5 G/DL (3.2-5.3); Alpha 1 (SPE) 0.3 G/DL (0.1-0.4); Alpha 1 (SPE) Rel % 4.6 %; Alpha 2 (SPE) 0.7 G/DL (0.4-1.0); Alpha 2 (SPE) Rel % 10.8 %; Beta (SPE) 0.7 G/DL (0.5-1.1); Beta (SPE) Rel % 10.5 %; Gamma (SPE) 1.6 G/DL (0.7-1.7); Gamma (SPE) Rel % 23.1 %
[2020-08-09 08:55] LABS: Albumin (UPER) 400.6 MG/DL; Albumin (UPER) Rel% 63.4 %; Alpha 1 (UPER) 49.3 MG/DL; Alpha 1 (UPER) Rel% 7.8 %; Alpha 2 (UPER) 41.7 MG/DL; Alpha 2 (UPER) Rel % 6.6 %; Beta (UPER) 52.5 MG/DL; Beta (UPER) Rel % 8.3 %; Gamma (UPER) 87.9 MG/DL; Gamma (UPER) Rel % 13.9 %
[2020-08-09] MEDS: FERROUS SULFATE 325 MG TABLET PO SCH ×2 (09:03→20:43)
[2020-08-09] MEDS: PANTOPRAZOLE 40 MG TABLET PO SCH (09:03)
[2020-08-09] MEDS: carvediloL 12.5 MG TABLET PO SCH ×2 (09:03→18:12)
[2020-08-09] MEDS: INSULIN LISPRO 100 UNIT/ML SUBCUT SCH ×4 (09:04→20:42)
[2020-08-09] MEDS: DOCUSATE SODIUM 100 MG CAPSULE PO SCH ×2 (09:04→20:43)
[2020-08-09 10:29] LABS: Immuno Free Light Chain Kappa 29.51 MG/DL (0.33-1.94); Immuno Free Light Chain Lambda 21.67 MG/DL (0.57-2.63); Immuno Free Light Chain Ratio 1.36 MG/DL (0.26-1.65)
[2020-08-09] MEDS: hydrALAZINE 20 MG/1 ML VIAL IV PRN ×2 (11:58→18:16)
[2020-08-09] MEDS: ACETAMINOPHEN 325 MG TABLET PO PRN (15:14)
[2020-08-09 20:36] VITALS: BP 168/90
== END 2020-08-09 21:56 | disposition home or self-care (01) | DRG 673 ==
LOC: N.ED 14:01 → N.EDINP 17:01 → N.5E 19:41
PROVIDERS: ADMIT Internal Medicine; ATTEND Internal Medicine

== ENCOUNTER 2021-07-01 13:22 | Observation (INO) ==
[2021-07-01 16:07] LABS: Basophils % 0.8 % (0.0-0.8); Eosinophils # 0.3 10*3/uL (0.0-0.87); Eosinophils % 5.3 % (0.00-10.9); Hematocrit 24.1 VOL% (42.0-52.0); Hemoglobin 7.8 GM/DL (14.0-18.0); Immature Granulocytes % 0.6 %; Immature Granulocytes Absolute 0.03 #; Lymphocytes # 0.4 10*3/uL (1.4-4.0); Lymphocytes % 8.1 % (21.2-54.2); Mean Corpuscular HGB Conc 32.4 GM/DL (32-36); Mean Corpuscular Volume 93.8 FL (87-102); Mean Platelet Volume 9.9 FL (9.6-12.0); Monocytes # 0.7 10*3/uL (0.11-0.8); Monocytes % 13.4 % (1.7-12.7); Neutrophils % 71.8 % (38.7-73.9); Platelet Count 207 T/CUMM (130-400); Red Blood Count 2.57 MC/CUMM (3.8-5.5); Red Cell Distribution Width 12.3 % (9.3-17.3); White Blood Count 5.1 T/CUMM (4-12)
[2021-07-01 16:26] LABS: Alanine Aminotransferase 9 U/L (16-61); Albumin 2.4 G/DL (3.4-5.0); Alkaline Phosphatase 54 U/L (45-117); Aspartate Amino Transferase 8 U/L (0-37); Bilirubin,Total < 0.39 MG/DL (0.20-1.00); Blood Urea Nitrogen 67 MG/DL (7-18); Calcium 8.3 MG/DL (8.5-10.1); Carbon Dioxide 29 MMOL/L (21-32); Chloride 100 MMOL/L (98-107); Estimated Glom Filtration Rate 5 ML/MIN; Glucose 120 MG/DL (74-106); Osmolality,Calculated 296.5 MOS/KG (273-304); Potassium 3.9 MMOL/L (3.5-5.1); Sodium 139 MMOL/L (136-145); Total Protein 6.6 G/DL (6.4-8.2)
[2021-07-01] MEDS ORDERED: ONDANSETRON 4 MG/2 ML VIAL IV PRN (17:29)
[2021-07-01] MEDS ORDERED: hydrALAZINE 20 MG/1 ML VIAL IV PRN (17:29)
[2021-07-01] MEDS ORDERED: ACETAMINOPHEN 325 MG TABLET PO PRN (17:29)
[2021-07-01] MEDS ORDERED: ALBUTEROL 2.5 MG/3 ML NEB RESP TX PRN (17:29)
[2021-07-01] MEDS ORDERED: GLUCAGON 1 MG VIAL IM PRN (17:29)
[2021-07-01] MEDS ORDERED: DEXTROSE 10% 250 ML BAG IV PRN (18:08)
[2021-07-01 19:50] LABS: % Iron Saturation 21.5 % (18-50)
[2021-07-01] MEDS: DOCUSATE SODIUM 100 MG CAPSULE PO SCH (22:12)
[2021-07-01] MEDS: cefTRIAXone 1,000 MG in SODIUM CHLORIDE 0.9% 100 ML IV SCH (22:12)
[2021-07-01] MEDS: carvediloL 25 MG TABLET PO SCH (22:12)
[2021-07-02 06:09] LABS: RBC,Urine 1 /HPF (0-4)
[2021-07-02 06:10] LABS: Bilirubin,Urine Negative (Negative); Blood, Urine Trace mg/dL (Negative); Glucose,Urine (UA) Negative (Negative); Ketones,Urine Negative (Negative); Nitrite,Urine Negative (Negative); Protein,Urine 100 mg/dL (Negative); Urine Appearance Clear (Clear); Urine Color Yellow (Yellow); Urine Specific Gravity 1.015 (1.001-1.035); Urine Urobilinogen 0.2 eU/dL (<2.0); Urine pH 7.5 (4.5-8.0)
[2021-07-02 06:16] LABS: Basophils # 0.1 10*3/uL (0.0-0.2); Basophils % 1.5 % (0.0-0.8); Eosinophils # 0.3 10*3/uL (0.0-0.87); Eosinophils % 6.9 % (0.00-10.9); Hematocrit 22.1 VOL% (42.0-52.0); Hemoglobin 7.3 GM/DL (14.0-18.0); Immature Granulocytes % 0.5 %; Immature Granulocytes Absolute 0.02 #; Lymphocytes # 0.4 10*3/uL (1.4-4.0); Lymphocytes % 11.3 % (21.2-54.2); Mean Platelet Volume 9.8 FL (9.6-12.0); Monocytes # 0.5 10*3/uL (0.11-0.8); Monocytes % 12.3 % (1.7-12.7); Neutrophils % 67.5 % (38.7-73.9); Platelet Count 203 T/CUMM (130-400); Red Blood Count 2.35 MC/CUMM (3.8-5.5); Red Cell Distribution Width 12.4 % (9.3-17.3); White Blood Count 3.9 T/CUMM (4-12)
[2021-07-02] MEDS ORDERED: LEVOTHYROXINE 100 MCG TABLET PO SCH (06:30)
[2021-07-02 06:46] LABS: Alanine Aminotransferase 9 U/L (16-61); Albumin 2.3 G/DL (3.4-5.0); Alkaline Phosphatase 50 U/L (45-117); Aspartate Amino Transferase 9 U/L (0-37); Bilirubin,Total < 0.39 MG/DL (0.20-1.00); Blood Urea Nitrogen 67 MG/DL (7-18); Carbon Dioxide 28 MMOL/L (21-32); Chloride 100 MMOL/L (98-107); Cholesterol 135 MG/DL (50-200); Estimated Glom Filtration Rate 5 ML/MIN; Glucose 88 MG/DL (74-106); HDL Cholesterol 35 MG/DL (40-60); Osmolality,Calculated 294.5 MOS/KG (273-304); Potassium 3.3 MMOL/L (3.5-5.1); Risk Ratio 3.86; Sodium 139 MMOL/L (136-145); Triglycerides 98 MG/DL (2-150); VLDL Cholesterol 19.6 MG/DL
[2021-07-02 08:30] LABS: INR 1.1; PT Patient Result 11.6 SECS (10.5-12.0)
[2021-07-02] MEDS ORDERED: IRON SUCROSE 200 MG in SODIUM CHLORIDE 0.9% 100 ML IV SCH (09:00)
[2021-07-02] MEDS ORDERED: ERGOCALCIFEROL 50,000 UNIT CAPSULE PO SCH (09:30)
[2021-07-02] MEDS ORDERED: SODIUM CHLORIDE 0.9% 1,000 ML IV PRN (09:39)
[2021-07-02] MEDS: (Sucroferric Oxyhydroxide [Velphoro] 500 mg Tablet,Chewable) PO SCH ×3 (09:48→16:37)
[2021-07-02] MEDS: DOCUSATE SODIUM 100 MG CAPSULE PO SCH ×2 (09:48→21:39)
[2021-07-02] MEDS: PANTOPRAZOLE 40 MG TABLET PO SCH (09:49)
[2021-07-02] MEDS: carvediloL 25 MG TABLET PO SCH ×2 (09:58→21:38)
[2021-07-02] MEDS: FERRIC GLUCONATE COMPLEX 125 MG in SODIUM CHLORIDE 0.9% 100 ML IV SCH (09:59)
[2021-07-02] MEDS ORDERED: BUPIVACAINE MPF 0.25% 30 ML VIAL ONE (11:32)
[2021-07-02] MEDS ORDERED: ROCURONIUM 50 MG/5 ML VIAL IV ONE (11:32)
[2021-07-02] MEDS ORDERED: SEVOFLURANE 1 UNIT/15 MINUTE INH ONE (11:32)
[2021-07-02] MEDS ORDERED: ONDANSETRON 4 MG/2 ML VIAL ONE (11:32)
[2021-07-02] MEDS ORDERED: propofoL 200 MG/20 ML VIAL IV ONE (11:32)
[2021-07-02] MEDS ORDERED: LIDOCAINE 1%/EPI INJ 20 ML VIAL ONE (11:32)
[2021-07-02] MEDS ORDERED: TISSUE ADHESIVE 1 EACH APPLICATOR TOP ONE (11:32)
[2021-07-02] MEDS ORDERED: LIDOCAINE 2% 5 ML VIAL ONE (11:32)
[2021-07-02] MEDS ORDERED: fentaNYL 100 MCG/2 ML VIAL ONE (11:33)
[2021-07-02] MEDS ORDERED: MIDAZOLAM 2 MG/2 ML VIAL ONE (11:33)
[2021-07-02] MEDS ORDERED: ETOMIDATE 40 MG/20 ML VIAL IV ONE (11:33)
[2021-07-02] MEDS ORDERED: ceFAZolin 1,000 MG VIAL ONE (12:52)
[2021-07-02] MEDS ORDERED: SODIUM CHLORIDE 0.9% 500 ML IV ONE (12:52)
[2021-07-02] MEDS ORDERED: PROMETHAZINE INJ 25 MG in SODIUM CHLORIDE 0.9% 50 ML IV PRN (13:00)
[2021-07-02] MEDS ORDERED: diphenhydrAMINE 50 MG/1 ML VIAL IV PRN (13:00)
[2021-07-02] MEDS ORDERED: MEPERIDINE 25 MG/1 ML VIAL IV PRN (13:00)
[2021-07-02] MEDS ORDERED: HYDROmorphone 1 MG/1 ML SYRINGE IV PRN (13:00)
[2021-07-02] MEDS ORDERED: SUGAMMADEX 200 MG/2 ML VIAL IV ONE (13:00)
[2021-07-02] MEDS ORDERED: ONDANSETRON 4 MG/2 ML VIAL IV PRN (13:00)
[2021-07-02] MEDS ORDERED: ALBUTEROL INHALER 18 GM INH ONE (13:11)
[2021-07-02] MEDS: cefTRIAXone 1,000 MG in SODIUM CHLORIDE 0.9% 100 ML IV SCH (21:38)
[2021-07-03 05:16] LABS: Basophils % 0.2 % (0.0-0.8); Hematocrit 25.7 VOL% (42.0-52.0); Hemoglobin 8.4 GM/DL (14.0-18.0); Immature Granulocytes % 0.4 %; Immature Granulocytes Absolute 0.02 #; Lymphocytes # 0.3 10*3/uL (1.4-4.0); Lymphocytes % 5.5 % (21.2-54.2); Mean Corpuscular HGB Conc 32.7 GM/DL (32-36); Mean Corpuscular Volume 91.8 FL (87-102); Mean Platelet Volume 10.5 FL (9.6-12.0); Monocytes # 0.5 10*3/uL (0.11-0.8); Monocytes % 8.8 % (1.7-12.7); Neutrophils % 85.1 % (38.7-73.9); Platelet Count 172 T/CUMM (130-400); Red Cell Distribution Width 13.4 % (9.3-17.3); White Blood Count 5.3 T/CUMM (4-12)
[2021-07-03 05:42] LABS: Alanine Aminotransferase < 9 U/L (16-61); Albumin 2.2 G/DL (3.4-5.0); Alkaline Phosphatase 46 U/L (45-117); Aspartate Amino Transferase 8 U/L (0-37); Bilirubin,Total < 0.39 MG/DL (0.20-1.00); Blood Urea Nitrogen 75 MG/DL (7-18); Calcium 8.2 MG/DL (8.5-10.1); Carbon Dioxide 25 MMOL/L (21-32); Chloride 102 MMOL/L (98-107); Estimated Glom Filtration Rate 4 ML/MIN; Glucose 143 MG/DL (74-106); Osmolality,Calculated 298.7 MOS/KG (273-304); Potassium 4.1 MMOL/L (3.5-5.1); Sodium 138 MMOL/L (136-145); Total Protein 6.7 G/DL (6.4-8.2)
[2021-07-03] MEDS ORDERED: LEVOTHYROXINE 112 MCG TABLET PO SCH (06:30)
[2021-07-03] MEDS: (Sucroferric Oxyhydroxide [Velphoro] 500 mg Tablet,Chewable) PO SCH ×2 (07:17→12:39)
[2021-07-03] MEDS ORDERED: carvediloL 25 MG TABLET PO SCH (08:00)
[2021-07-03] MEDS: FERRIC GLUCONATE COMPLEX 125 MG in SODIUM CHLORIDE 0.9% 100 ML IV SCH (08:22)
[2021-07-03] MEDS: PANTOPRAZOLE 40 MG TABLET PO SCH (08:23)
[2021-07-03] MEDS: DOCUSATE SODIUM 100 MG CAPSULE PO SCH (08:24)
[2021-07-03 11:53] VITALS: BP 134/80
== END 2021-07-03 15:15 | disposition home or self-care (01) ==
LOC: N.3E 13:22 → N.ED 13:22 → N.3E 19:29
PROVIDERS: ADMIT Internal Medicine; ATTEND Internal Medicine

== ENCOUNTER 2021-10-07 15:21 | Observation (INO) ==
[2021-10-07 16:08] LABS: Basophils % 0.4 % (0.0-0.8); Eosinophils # 0.1 10*3/uL (0.0-0.87); Eosinophils % 2.6 % (0.00-10.9); Hematocrit 45.8 VOL% (42.0-52.0); Hemoglobin 14.9 GM/DL (14.0-18.0); Immature Granulocytes % 1.3 %; Immature Granulocytes Absolute 0.06 #; Lymphocytes # 0.6 10*3/uL (1.4-4.0); Lymphocytes % 12.4 % (21.2-54.2); Mean Corpuscular HGB Conc 32.5 GM/DL (32-36); Mean Corpuscular Volume 87.1 FL (87-102); Monocytes # 0.3 10*3/uL (0.11-0.8); Neutrophils % 77.3 % (38.7-73.9); Platelet Count 128 T/CUMM (130-400); Red Blood Count 5.26 MC/CUMM (3.8-5.5); Red Cell Distribution Width 14.6 % (9.3-17.3); White Blood Count 4.7 T/CUMM (4-12)
[2021-10-07 16:28] LABS: Albumin 3.4 G/DL (3.4-5.0); Bilirubin,Total 0.5 MG/DL (0.20-1.00); Calcium 9.7 MG/DL (8.5-10.1); Osmolality,Calculated 286.7 MOS/KG (273-304); Potassium 4.6 MMOL/L (3.5-5.1); Total Protein 8.5 G/DL (6.4-8.2)
[2021-10-07 16:34] LABS: INR 1.2; PT Patient Result 12.7 SECS (10.1-12.1)
[2021-10-07] MEDS ORDERED: ONDANSETRON 4 MG/2 ML VIAL IV PRN (17:43)
[2021-10-07] MEDS ORDERED: hydrALAZINE 20 MG/1 ML VIAL IV PRN (17:43)
[2021-10-07] MEDS ORDERED: GLUCAGON 1 MG VIAL IM PRN (17:43)
[2021-10-07] MEDS ORDERED: DEXTROSE 10% 250 ML BAG IV PRN (18:12)
[2021-10-07] MEDS ORDERED: MORPHINE 2 MG/1 ML SYRINGE ONE (18:53)
[2021-10-07] MEDS ORDERED: MORPHINE 2 MG/1 ML SYRINGE IV STA (18:58)
[2021-10-07] MEDS: MORPHINE 2 MG/1 ML SYRINGE IV PRN (20:08)
[2021-10-07] MEDS: carvediloL 25 MG TABLET PO SCH (20:37)
[2021-10-07] MEDS: HEPARIN 5,000 UNIT/1 ML VIAL SUBCUT SCH (20:38)
[2021-10-08 02:22] LABS: Basophils % 0.4 % (0.0-0.8); Eosinophils # 0.3 10*3/uL (0.0-0.87); Eosinophils % 4.3 % (0.00-10.9); Hematocrit 38.8 VOL% (42.0-52.0); Hemoglobin 12.4 GM/DL (14.0-18.0); Immature Granulocytes % 0.3 %; Immature Granulocytes Absolute 0.02 #; Lymphocytes # 0.4 10*3/uL (1.4-4.0); Lymphocytes % 5.6 % (21.2-54.2); Mean Corpuscular Volume 88.8 FL (87-102); Mean Platelet Volume 9.2 FL (9.6-12.0); Monocytes # 0.6 10*3/uL (0.11-0.8); Monocytes % 8.9 % (1.7-12.7); Neutrophils % 80.5 % (38.7-73.9); Platelet Count 130 T/CUMM (130-400); Red Blood Count 4.37 MC/CUMM (3.8-5.5); Red Cell Distribution Width 14.6 % (9.3-17.3)
[2021-10-08 02:48] LABS: Calcium 9.7 MG/DL (8.5-10.1); Osmolality,Calculated 283.1 MOS/KG (273-304); Risk Ratio 2.67; Thyroid Stimulating Hormone 3.87 uIU/ml (0.358-3.74); VLDL Cholesterol 21.4 MG/DL
[2021-10-08 03:01] LABS: Potassium 6.2 MMOL/L (3.5-5.1)
[2021-10-08] MEDS ORDERED: SODIUM POLYSTYRENE SULFATE 15 GM/60 ML BOTTLE PO ONE (03:30)
[2021-10-08] MEDS ORDERED: INSULIN REGULAR 10 UNIT, CALCIUM GLUCONATE 1,000 MG in DEXTROSE 10% 250 ML IV ONE (04:00)
[2021-10-08] MEDS: MORPHINE 2 MG/1 ML SYRINGE IV PRN (04:09)
[2021-10-08] MEDS ORDERED: LEVOTHYROXINE 125 MCG TABLET PO SCH (06:00)
[2021-10-08 08:10] LABS: Calcium 9.6 MG/DL (8.5-10.1); Potassium 5.4 MMOL/L (3.5-5.1)
[2021-10-08] MEDS ORDERED: CALCIUM (CARBONATE)/VITAMIN D 600 MG-400 UNIT TABLET PO SCH (09:00)
[2021-10-08] MEDS ORDERED: ASPIRIN CHEW 81 MG TABLET PO SCH (09:00)
[2021-10-08] MEDS ORDERED: PANTOPRAZOLE 40 MG TABLET PO SCH (09:00)
[2021-10-08] MEDS: carvediloL 25 MG TABLET PO SCH (09:01)
[2021-10-08] MEDS: HEPARIN 5,000 UNIT/1 ML VIAL SUBCUT SCH (09:02)
[2021-10-08] MEDS ORDERED: DEXTROSE 50% 25 GM/50 ML VIAL IV PRN (13:22)
[2021-10-08] MEDS ORDERED: GLUCAGON 1 MG VIAL IM PRN (13:22)
[2021-10-08 15:51] VITALS: BP 140/70
[2021-10-08] MEDS ORDERED: carvediloL 25 MG TABLET PO SCH (17:00)
== END 2021-10-08 17:15 | disposition home or self-care (01) ==
LOC: EDBD → EDUNIT# → N.EDINP 15:21 → N.ED 15:21 → SUATTDRO 18:52 → N.2W 19:16
PROVIDERS: ADMIT Internal Medicine Geriatric Medicine; ATTEND Family Medicine